=== PATIENT | female | born 1980 | race Caucasian/White ===

== ENCOUNTER → 2024-09-27 | Outpatient (CLI) | payer BC, SELFPAY ==
--- NOTE | 2024-09-27 09:30 | XR_ITS ---
Examination: Pelvic ultrasound, transabdominal, complete Technique: Transabdominal ultrasound of the pelvis performed using grayscale imaging Date and time of exam: September 27, 2024 0920 hours INDICATIONS: History uterine areas of fibroid degeneration on examination 3 years ago FINDINGS: Uterus 11.4 cm endometrial stripe 1.3 cm Uterine vascular fundal mass 5.4 x 5.2 cm Posterior uterine body vascular mass 4.2 x 4.8 cm Lower uterine segment solid mass 2.7 x 3.3 cm Right ovary 3.8 cm arterial flow 27 mm cyst Left ovary 3.4 cm arterial flow 27 mm cyst IMPRESSION: Prominent uterine masses as above, recommend transvaginal pelvic sonography follow-up
== END | disposition home or self-care (01) ==
PROVIDERS: PCP Family Medicine; Referring Provider Physician Assistant; Visit Provider Physician Assistant
DX: R19.09 Other intra-abdominal and pelvic swelling, mass and lump (principal)
CPT/HCPCS: 76856

== ENCOUNTER → 2025-02-01 | Outpatient (CLI) | payer BC, SELFPAY ==
--- NOTE | 2025-02-01 09:00 | XR_ITS ---
Examination: MRI pelvis, without contrast Date and time of exam: February 01, 2025, 0916 hrs. Indications: Pelvic cramping beginning 3 years ago., Pelvic sonogram September 27, 2024 uterine fundal mass 5.4 cm uterine body mass 4.8 cm lower uterine segment mass 3.3 cm Technique: Multiple axial sagittal and coronal images of the pelvis have been obtained with the Siemens high-resolution 1.5 An MRI scanner. Images obtained include T2-weighted fat-suppressed sagittal sections, TR 3500, TE 46, T2 weighted coronal fat suppressed images, TR 3050, TE 84, T2-weighted transverse fat suppressed images, TR 3260, TE 63, proton density transverse images, TR 4720 TE 46, and T1 weighted coronal images, TR 560, TE 13. Findings: Uterus 11 x 6 x 5.8 cm. Uterine exophytic fundal mass 5.5 cm Uterine body mass posteriorly 6.0 cm Lower uterine segment cervical mass 3.3 cm Multiple right ovarian cysts, the largest 3.4 cm Multiple left ovarian cysts, the largest 2.1 cm No free fluid in the pelvis Impression: Uterine masses as above, recommend repeat transvaginal pelvic sonography to assess the lower uterine segment mass and exclude its position in the cervix
== END | disposition home or self-care (01) ==
LOC: SMRI 02-06 06:46
PROVIDERS: Referring Provider Physician Assistant; Visit Provider Physician Assistant
DX: R19.09 Other intra-abdominal and pelvic swelling, mass and lump (principal)
CPT/HCPCS: 72195

== ENCOUNTER 2025-02-21 17:59 | Emergency (ER) | payer OTHER, SELFPAY ==
--- NOTE | 2025-02-21 18:29 | EDNOTE_ITS ---
ED Animal Bite RME/HPI General Chief Complaint: Animal Bite Stated Complaint: DOG BITE AT WORK Time Seen by Provider: 02/21/25 18:28 Arrival date/time: 02/21/25 17:59 RME / HPI RME / HPI narrative: See MDM for Dr. Rowell's HPI documentation. Related Data Home Medications ?Medication ?Instructions ?Recorded ?Confirmed fexofenadine 60 mg tablet (Katina 60 mg PO QDAY 04/2404/24/19 Allergy) mometasone-formoterol HFA 200 2 puff inhalation BID 04/24/19 mcg-5 mcg/actuation aerosol inhaler (Dulera) Previous Rx's ?Medication ?Instructions ?Recorded docusate sodium 100 mg capsule 100 mg PO BID #50 caps 04/25/19 (Colace) hydrocodone 5 mg-acetaminophen 325 1 tab PO Q6H PRN pa in #20 tabs 04/25/19 mg tablet ([place]) ibuprofen 600 mg tablet 600 mg PO Q8HR PRN pain (sca le 04/25/19 score 4-6) #14 tabs acetaminophen 300 mg-codeine 30 mg 2 tab PO Q8H PRN pa in #20 tabs 02/21/25 tablet amoxicillin 875 mg-potassium 1 tab PO BID 3 days #6 ta bs 02/21/25 clavulanate 125 mg tablet ibuprofen 600 mg tablet 600 mg PO TID PRN fever or p ain 02/21/25 #30 tabs Allergies Allergy/AdvReac Type Severity Reaction Status Date / Time No Known Allergies Allergy Verified 02/21/25 18:01 Review of Systems Review of Systems Systems Reviewed: All systems reviewed, normal except as documented Past Medical History Past Medical History NEUROLOGIC: Negative Neurological Disorders or Seizures CARDIAC: Negative Cardiac Disorders or Congestive Heart Failure RESPIRATORY: Positive Asthma (uses control inhaler daily) and Pneumonia; Negative Chronic Obstructive Pulmonary Disease (COPD) or Sleep Apnea GASTROINTESTINAL: Positive Gastrointestinal Disorders, Gall Bladder Disease and Obesity GENITOURINARY: Negative Genitourinary Disorders or Renal Disease REPRODUCTIVE: Negative Previous Pregnancies MUSCULOSKELETAL: Positive Musculoskeletal Disorders and Fractures (left 2nd toe) ENDOCRINE: Negative Endocrine Disorders, Diabetes Mellitus Type 1 or Diabetes Mellitus Type 2 HEMATOLOGIC: Negative Blood Disorders PSYCHO/SOCIAL: Positive Depression (no current meds) OTHER HISTORY: Positive Chicken Pox; Negative Hospitalization, Shingles, Falls, Blood Transfusions, Blood Transfusion Reaction, Anesthesia Reactions or Cancer Family History FAMILY HISTORY: Positive Family Cardiac Disorders (father(HTN)), Family Cancer (Mother(Thyroid Ca)) and Family Surgery; Negative Family Anesthesia Reaction Surgical History SURGICAL: Positive Nose Surgery (sinusotomy,turbinate reduction, septoplasty) Social History SMOKING STATUS: Never smoker ED Exam Narrative Physical exam: See [facility] for Dr. Rowell's physical exam documentation. Course Quality Measures none Orders Category Date Time Status XR finger RT min 2V Stat Exams 02/21/25 18:36 Taken Amoxicillin/Pot Clav 875 [Augmentin 875] Med 02/21/25 18:36 Discontinued 1 tab PO X1 ONE Bacitracin Oint pkt Med 02/21/25 19:59 Discontinued 1 gm TOP X1 ONE Ibuprofen Tab [Motrin Tab] Med 02/21/25 18:36 Discontinued 600 mg PO X1 ONE Rabies Immune Globulin/Thimer [Kedrab Inj] Med 02/21/25 19:00 Discontinued 1,300 iu IM X1 ONE Rabies Vaccine (Pcec)/Pf [Rabavert Rabies Vacc w/ Med 02/21/25 18:45 Discontinued Diluent] 2.5 unit IM .ONCE ONE TET,DIP/PERT AC (Adult)-Tdap [Boostrix Adult (Tdap) Med 02/21/25 18:36 Discontinued Vacc] 0.5 ml IMI .ONCE ONE Vital Signs Vital signs: Vital Signs Temperature 98 F 02/21/25 18:41 Pulse Rate 62 02/21/25 18:41 Respiratory Rate 18 02/21/25 18:41 Blood Pressure 142/87 H 02/21/25 18:41 Pulse Oximetry (%) 99 02/21/25 18:41 Oxygen Delivery Method Room Air 02/21/25 18:41 Animal Bite [facility] Narrative [facility] Narrative:: This section includes all my notes and documentations, including HPI, PE, and ED course. Elvin Rowell MD HPI: 45yo female here after sustaining a dog bite to her right ring finger just [employer]ER[employer]. 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 She is requesting the rabies vaccine series. No other complaints reported. ROS: All negative except as documented in HPI. Physical Exam: General: Alert and oriented. No acute distress when remaining still. Eyes: Conjunctivae and lids clear. ENT: No nasal congestion. Neck: Supple. Lungs: No respiratory distress. Skin: Warm and dry. Neuro: Alert and oriented X 3. Right 4th Finger: In the palm surface of the distal phalanx, there is 0.5 cm open wound. I reviewed all diagnostic test results. My interpretation of the right finger x-ray is no acute fracture, official radiology report is pending. At this point, diagnoses include: Open wound of left ring finger due to dog bite Treatment here included: Augmentin Tdap Ibuprofen Rabies immunoglobulin and vaccine Provided good wound care instructions. Based on my best medical judgment, made decision no further evaluation or treatment indicated at this time. Patient understands and agrees to the discharge instructions customized and printed, see below. Discharge instructions from Dr. Rowell: -- Keep the current dressing intact for 48 hours. -- After 48 hours, change the dressing once daily. Until the wound is covered with scab. -- First remove the dressing gently. If it does not come off easily, run water through it until it comes off easily. -- Then gently wash with soap and water. -- After completely drying, apply antibiotic ointment and new dressing. -- Elevate above the heart level today and tomorrow as much as possible. Placing the hand on the head is a good method. -- Augmentin to prevent severe infection. -- Ibuprofen 600 mg every 6-8 hours today and tomorrow to decrease inflammation then as needed. -- Tylenol with codeine for severe pain. -- See a private doctor on 02/24/2025 for recheck. To make sure you are healing without any complications. -- See your doctor or return here on 02/24/2025 and 02/28/2025 and 03/07/2025 for rabies vaccine. -- Seek immediate medical care with fever, spreading redness from the wound, or with any concerns. Elvin Rowell MD Patient data External records reviewed:: [facility] previous records (Per chart review, patient has no relevant previous ED visits.) Clinical information provided by:: patient Social determinants that could affect healthcare access:: none Patient has the following chronic illnesses:: asthma How is presenting disease/condition affected by chronic disease/condition?: uneffected by Evaluation data The following diagnostics were reviewed and interpreted by me:: radiology exam(s) Lab and/or radiology exams considered but not ordered:: none Interpretation Summary: I reviewed all diagnostic test results. My interpretation of the right finger x-ray is no acute fracture, official radiology report is pending. Medications / Prescriptions Medications or Prescriptions considered but not ordered:: none Medication administrations:: Medication Administration History Discontinued Medications Amoxicillin/Clavulanate Potassium (Amoxicillin/Pot Clav 875 Tablet) 1 tab PO X1 ONE Stop: 02/21/25 18:37 Last Admin: 02/21/25 19:46 Dose: 1 tab Documented By: PETER Bacitracin (Bacitracin Oint 1 Gm Packet) 1 gm TOP X1 ONE Stop: 02/21/25 20:00 Last Admin: 02/21/25 20:14 Dose: 1 gm Documented By: PETER Diphtheria/Tetanus/Acell Pertussis (Diphth,Pertuss(Acell),Tet Vac 0.5 Ml Syr- Adult) 0.5 ml IMi .ONCE ONE Stop: 02/21/25 18:37 Last Admin: 02/21/25 19:45 Dose: 0.5 ml Documented By: PETER Ibuprofen (Ibuprofen Tab 600 Mg Tablet) 600 mg PO X1 ONE Stop: 02/21/25 18:37 Last Admin: 02/21/25 19:46 Dose: 600 mg Documented By: PETER Rabies Immune Globulin (Rabies Immune Globulin 150 Iu/Ml Vial 10ml) 1,300 iu IM X1 ONE Stop: 02/21/25 19:01 Last Admin: 02/21/25 19:44 Dose: 1,300 iu Documented By: PETER Rabies Vaccine Chick Embryo Cell (Rabies Vaccine (Pcec)/Pf 2.5 Unit/Ml Vial) 2.5 unit IM .ONCE ONE Stop: 02/21/25 18:46 Last Admin: 02/21/25 19:45 Dose: 2.5 unit Documented By: PETER Augmentin, Tdap, Ibuprofen, Rabies immunoglobulin and vaccine Consultations Consultation(s) initiated? (list below): No Diagnosis Differential diagnosis animal bite: dog bite, rabies contact and other (puncture wound, finger fracture) Most likely diagnosis given after review of the tests above:: Open wound of left ring finger due to dog bite Admission Indicated Admission indicated?: not indicated Explain why admission is indicated or not indicated:: With no condition needing emergent intervention, there was no indication for admission. Admission Request Was there a request for admission?: No Disposition Plan Disposition Plan: Discharge Discharge Attestation Discharge Attestation: The patient and all family members were given an opportunity to ask questions and understood the discharge instructions. Discharge instructions specifically effects, indications for sooner follow up or return to the emergency department, and the expected course of current diagnosis. Patient condition: Stable Discharge Plan Plan Patient Disposition: HOME (Self Care) Prescriptions/Referrals Prescriptions/Med Rec: New acetaminophen-codeine 300-30 mg tablet 2 tab PO Q8H MDD 6 PRN (Reason: pain) Qty: 20 0RF ibuprofen 600 mg tablet 600 mg PO TID PRN (Reason: fever or pain) Qty: 30 0RF amoxicillin-pot clavulanate 875-125 mg tablet 1 tab PO BID 3 Days Qty: 6 0RF No Action fexofenadine [Katina Allergy] 60 mg Tablet 60 mg PO QDAY Dulera 200-5 mcg/actuation Hfa Aerosol Inhaler 2 puff INHALATION BID docusate sodium [Colace] 100 mg capsule 100 mg PO BID Qty: 50 0RF hydrocodone-acetaminophen [[place]] 5-325 mg tablet 1 tab PO Q6H MDD 4 PRN (Reason: pain) Qty: 20 0RF ibuprofen 600 mg tablet 600 mg PO Q8HR MDD 3 PRN (Reason: pain (scale score 4-6)) Qty: 14 0RF Referrals: Karlo Valerio MD [Primary Care Provider, Family Practice] - In 1 week Problem List Clinical Impression: Open wound of left ring finger due to dog bite Patient/Caregiver Discharge Instructions Discharge Activity: activity as tolerated Education Materials: ED Dog Bite, ED Wound Care Additional Instructions: Discharge instructions from Dr. Rowell:? -- Keep the current dressing intact for 48 hours. -- After 48 hours, change the dressing once daily. Until the wound is covered with scab. -- First remove the dressing gently.? If it does not come off easily, run water through it until it comes off easily. -- Then gently wash with soap and water. -- After completely drying, apply antibiotic ointment and new dressing. -- Elevate above the heart level today and tomorrow as much as possible.? Placing the hand on the head is a good method. -- Augmentin to prevent severe infection. -- Ibuprofen 600 mg every 6-8 hours today and tomorrow to decrease inflammation then as needed. -- Tylenol with codeine for severe pain. -- See a private doctor on 02/24/2025 for recheck. To make sure you are healing without any complications. -- See your doctor or return here on 02/24/2025 and 02/28/2025 and 03/07/2025 for rabies vaccine. -- Seek immediate medical care with fever, spreading redness from the wound, or with any concerns. Print Language: Latvian Stand Alone Forms: Rowan Award Info., Patient Portal Info Letter
--- NOTE | 2025-02-21 18:36 | XR_ITS ---
Examination: Fingers, right hand fourth digit 3 views Technique: AP, oblique, lateral views fourth digit 3 views. Exam date and time: February 21, 2025 1917 hrs. Indications: Dog bite to the hand today with fourth digit pain. Findings: No fracture or dislocation. No foreign body Impression: Negative for opaque foreign body
[2025-02-21 18:41] VITALS: BP 142/87; PULSE 62; RESP 18; TEMP 36.6; O2SAT 99
[2025-02-21] MEDS: RABIES IMMUNE GLOBULIN 150 IU/ML VIAL 10ML 1300 IU IM (19:44)
[2025-02-21] MEDS: RABIES VACCINE (PCEC)/PF 2.5 UNIT/ML VIAL IM (19:45)
[2025-02-21] MEDS: DIPHTH,PERTUSS(ACELL),TET VAC 0.5 ML SYR- ADULT IMi (19:45)
[2025-02-21] MEDS: AMOXICILLIN/POT CLAV 875 TABLET 1 TAB PO (19:46)
[2025-02-21] MEDS: IBUPROFEN TAB 600 MG TABLET PO (19:46)
[2025-02-21] MEDS: BACITRACIN OINT 1 GM PACKET TOP (20:14)
== END 2025-02-21 20:22 | disposition home or self-care (01) ==
PROVIDERS: Emergency Provider Emergency Medicine; PCP Family Medicine
DX: S61.255A Open bite of left ring finger without damage to nail, initial encounter (principal); W54.0XXA Bitten by dog, initial encounter; Z23 Encounter for immunization
CPT/HCPCS: 73140; 90377; 90471; 90472; 90675; 90715; 96372; 99283; A9270

== ENCOUNTER 2025-02-24 14:50 | Emergency (ER) | payer OTHER, SELFPAY ==
[2025-02-24 14:51] VITALS: BMI 20.8
[2025-02-24 15:50] VITALS: BP 112/69; PULSE 62; RESP 18; TEMP 36.9; O2SAT 100
--- NOTE | 2025-02-24 15:53 | PD.EDADULT ---
ED General RME/HPI General Chief complaint: General Adult/Misc Complain Stated complaint: REQ RABIES SERIES IMMUNIZATON #2 Time Seen by Provider: 02/24/25 15:01 Source: patient Arrival date/time: 02/24/25 14:50 45-year-old female with no known medical history presents to the emergency room with a chief complaint of needing her second rabies immunization Mode of arrival: ambulatory Limitations: no limitations Related Data Home Medications ?Medication ?Instructions ?Recorded ?Confirmed fexofenadine 60 mg tablet (Katina 60 mg PO QDAY 04/24/19 04/24/19 Allergy) mometasone-formoterol HFA 200 2 puff inhalation BID 04/24/19 04/24/19 mcg-5 mcg/actuation aerosol inhaler (Dulera) Previous Rx's ?Medication ?Instructions ?Recorded docusate sodium 100 mg capsule 100 mg PO BID #50 caps 04/25/19 (Colace) hydrocodone 5 mg-acetaminophen 325 1 tab PO Q6H PRN pain #20 tabs 04/25/19 mg tablet ([place]) ibuprofen 600 mg tablet 600 mg PO Q8HR PRN pain (scale 04/25/19 score 4-6) #14 tabs acetaminophen 300 mg-codeine 30 mg 2 tab PO Q8H PRN pain #20 tabs 02/21/25 tablet ibuprofen 600 mg tablet 600 mg PO TID PRN fever or pain 02/21/25 #30 tabs Allergies Allergy/AdvReac Type Severity Reaction Status Date / Time No Known Allergies Allergy Verified 02/24/25 14:53 Review of Systems Review of Systems Systems Reviewed: All systems reviewed, normal except as documented Constitutional Constitutional: Reports system reviewed and no additional complaints, except as documented, Denies fatigue, Denies fever(s), Denies headache(s) and Denies weakness Eyes Eyes: Reports system reviewed and no additional complaints, except as documented, Denies blurry vision and Denies change in vision ENT Ears, Nose, Mouth, and Throat: Reports system reviewed and no additional complaints, except as documented, Denies otalgia, Denies headache(s), Denies nasal congestion, Denies throat swelling and Denies vertigo Cardiovascular Cardiovascular: Reports system reviewed and no additional complaints, except as documented, Denies chest pain, Denies dyspnea and Denies dyspnea on exertion Respiratory Respiratory: Reports system reviewed and no additional complaints, except as documented, Denies chest congestion, Denies cough, Denies dyspnea, Denies dyspnea on exertion and Denies wheezing Gastrointestinal Gastrointestinal: Reports system reviewed and no additional complaints, except as documented, Denies abdominal pain, Denies cramping, Denies nausea and Denies vomiting Genitourinary Genitourinary: Reports system reviewed and no additional complaints, except as documented Musculoskeletal Musculoskeletal: Reports system reviewed and no additional complaints, except as documented and Denies back pain Integumentary/Breasts Skin/Breast: Reports system reviewed and no additional complaints, except as documented and Denies wounds Neurologic Neurologic: Reports system reviewed and no additional complaints, except as documented, Denies confusion, Denies headache(s), Denies lack of coordination, Denies vertigo and Denies weakness Psychiatric Psychiatric: Reports system reviewed and no additional complaints, except as documented, Denies anxiety, Denies confusion, Denies depression, Denies paranoia, Denies suicidal ideation and Denies tactile hallucinations Endocrine Endocrine: Reports system reviewed and no additional complaints, except as documented and Denies fatigue Hematologic/Lymphatic Hematologic/Lymphatic: Reports system reviewed and no additional complaints, except as documented and Denies lymphadenopathy Allergic/Immunologic Allergic/Immunologic: Reports system reviewed and no additional complaints, except as documented, Denies throat swelling, Denies urticaria and Denies wheezing Past Medical History Past Medical History NEUROLOGIC: Negative Neurological Disorders or Seizures CARDIAC: Negative Cardiac Disorders or Congestive Heart Failure RESPIRATORY: Positive Asthma (uses control inhaler daily) and Pneumonia; Negative Chronic Obstructive Pulmonary Disease (COPD) or Sleep Apnea GASTROINTESTINAL: Positive Gastrointestinal Disorders, Gall Bladder Disease and Obesity GENITOURINARY: Negative Genitourinary Disorders or Renal Disease REPRODUCTIVE: Negative Previous Pregnancies MUSCULOSKELETAL: Positive Musculoskeletal Disorders and Fractures (left 2nd toe) ENDOCRINE: Negative Endocrine Disorders, Diabetes Mellitus Type 1 or Diabetes Mellitus Type 2 HEMATOLOGIC: Negative Blood Disorders PSYCHO/SOCIAL: Positive Depression (no current meds) OTHER HISTORY: Positive Chicken Pox; Negative Hospitalization, Shingles, Falls, Blood Transfusions, Blood Transfusion Reaction, Anesthesia Reactions or Cancer Family History FAMILY HISTORY: Positive Family Cardiac Disorders (father(HTN)), Family Cancer (Mother(Thyroid Ca)) and Family Surgery; Negative Family Anesthesia Reaction Surgical History SURGICAL: Positive Nose Surgery (sinusotomy,turbinate reduction, septoplasty) Social History SMOKING STATUS: Never smoker ED Exam General Limitations: Present no limitations General appearance: Present alert and in no apparent distress Head Head exam: Present atraumatic Eye Eye exam: Present normal appearance, PERRL and EOMI ENT ENT exam: Present normal exam, normal oropharynx and mucous membranes moist Neck Neck exam: Present normal inspection, full ROM and trachea midline Chest Chest inspection: Present normal inspection and symmetric chest wall rise Respiratory Respiratory exam: Present normal lung sounds bilaterally Cardiovascular Cardiovascular exam: Present regular rate, normal rhythm and normal heart sounds Abdominal Exam Abdominal exam: Present soft and normal bowel sounds Extremities Exam Extremities exam: Present normal inspection and full ROM Back Exam Back exam: Present normal inspection and full ROM Neurological Exam Neurological exam: Present alert, oriented X3 and CN II-XII intact Psychiatric Psychiatric exam: Present normal affect and normal mood Skin Skin exam: Present warm, dry, intact and normal color Course Quality Measures none Orders Category Date Time Status Rabies Vaccine (Pcec)/Pf [Rabavert Rabies Vacc w/ Med 02/24/25 15:45 Discontinued Diluent] 2.5 unit IM .ONCE ONE cefTRIAXone [Rocephin] 1,000 mg Med 02/24/25 15:48 Discontinued Lidocaine 1% 20 ml [Xylocaine 1% 20 ML] 2.1 ml IM X1 Vital Signs Vital signs: Vital Signs Temperature 98.4 F 02/24/25 15:50 Pulse Rate 62 02/24/25 15:50 Respiratory Rate 18 02/24/25 15:50 Blood Pressure 112/69 02/24/25 15:50 Pulse Oximetry (%) 100 02/24/25 15:50 Oxygen Delivery Method Room Air 02/24/25 15:50 Discharge Plan Plan Patient Disposition: HOME (Self Care) Discharge Disposition comment: Stable Prescriptions/Referrals Prescriptions/Med Rec: No Action fexofenadine [Katina Allergy] 60 mg Tablet 60 mg PO QDAY Dulera 200-5 mcg/actuation Hfa Aerosol Inhaler 2 puff INHALATION BID docusate sodium [Colace] 100 mg capsule 100 mg PO BID Qty: 50 0RF hydrocodone-acetaminophen [[place]] 5-325 mg tablet 1 tab PO Q6H MDD 4 PRN (Reason: pain) Qty: 20 0RF ibuprofen 600 mg tablet 600 mg PO Q8HR MDD 3 PRN (Reason: pain (scale score 4-6)) Qty: 14 0RF acetaminophen-codeine 300-30 mg tablet 2 tab PO Q8H MDD 6 PRN (Reason: pain) Qty: 20 0RF ibuprofen 600 mg tablet 600 mg PO TID PRN (Reason: fever or pain) Qty: 30 0RF Problem List Clinical Impression: Encounter for repeat administration of rabies vaccination Patient/Caregiver Discharge Instructions Additional Instructions: Please follow-up with your primary care provider in the next 24 to 48 hours For any evidence of worsening signs or symptoms return to the emergency room immediately Print Language: Maltese Stand Alone Forms: Rowan Award Info., Patient Portal Info Letter PA/BAND SEWER Supervising Physician PA/BAND SEWER Supervising Physician: Dr. Arias MDM Narrative MDM hospital course (for use when minimal MDM required): 45-year-old female with no known medical history presents to the emergency room with a chief complaint of needing her second rabies immunization Patient is hemodynamically stable and in no apparent distress Patient denies any other complaints and states her laceration is healing appropriately. Patient denies any fevers or any pus draining from the site. Her second dose of the rabies vaccination was given and the patient was discharged Patient was discharged and educated to follow-up with primary care provider in the next 24 to 48 hours and return to the emergency room for any evidence of worsening signs or symptoms Clinical Information Provided by: none Medical Records reviewed None Meds/Rx considered, not ordered None Labs/Rad/Tests considered, not ordered None Chronic Illness/Social Conditions which may negatively complicate care or outcome(s)-explain: None or not applicable EKG EKG not done Labs Labs: none Imaging Imaging interpretation: none Medication Administration(s) none Medication Administration History Discontinued Medications Ceftriaxone Sodium 1,000 mg/ (Lidocaine HCl 2.1 ml) 0 mg IM X1 ONE Stop: 02/24/25 15:49 Rabies Vaccine Chick Embryo Cell (Rabies Vaccine (Pcec)/Pf 2.5 Unit/Ml Vial) 2.5 unit IM .ONCE ONE Stop: 02/24/25 15:46 Diagnosis Differential Diagnosis ED Complaint MDM: Encounter for second dose of rabies vaccination
[2025-02-24] MEDS: RABIES VACCINE (PCEC)/PF 2.5 UNIT/ML VIAL IM (16:33)
[2025-02-24] MEDS: cefTRIAXone 1,000 MG, LIDOCAINE 1% 20 ML 2.1 ML IM (16:34)
== END 2025-02-24 17:14 | disposition home or self-care (01) ==
LOC: SERX 16:01
PROVIDERS: Emergency Provider Emergency Medicine; PCP Family Medicine
DX: Z23 Encounter for immunization (principal)
CPT/HCPCS: 90471; 90675; 96372; 99283; J0696; J3490

== ENCOUNTER 2025-02-28 20:32 | Emergency (ER) | payer OTHER, SELFPAY ==
[2025-02-28 20:34] VITALS: BMI 21.2
[2025-02-28 21:11] VITALS: BP 106/68; PULSE 60; RESP 18; TEMP 36.7; O2SAT 99
--- NOTE | 2025-02-28 21:36 | EDNOTE_ITS ---
ED Recheck Abnl Lab Rx-RME/HPI General Chief Complaint: General Adult/Misc Complain Stated Complaint: NEEDS 3RD RABBIES SHOT Time Seen by Provider: 02/28/25 21:25 Arrival date/time: 02/28/25 20:32 45F with history of asthma and psych presents to ED needing 3rd rabies shot. Limitations: no limitations Related Data Home Medications ?Medication ?Instructions ?Recorded ?Confirmed fexofenadine 60 mg tablet (Katina 60 mg PO QDAY 04/2404/24/19 Allergy) mometasone-formoterol HFA 200 2 puff inhalation BID 04/24/19 mcg-5 mcg/actuation aerosol inhaler (Dulera) Previous Rx's ?Medication ?Instructions ?Recorded docusate sodium 100 mg capsule 100 mg PO BID #50 caps 04/25/19 (Colace) hydrocodone 5 mg-acetaminophen 325 1 tab PO Q6H PRN pa in #20 tabs 04/25/19 mg tablet ([place]) ibuprofen 600 mg tablet 600 mg PO Q8HR PRN pain (sca le 04/25/19 score 4-6) #14 tabs acetaminophen 300 mg-codeine 30 mg 2 tab PO Q8H PRN pa in #20 tabs 02/21/25 tablet ibuprofen 600 mg tablet 600 mg PO TID PRN fever or p ain 02/21/25 #30 tabs Allergies Allergy/AdvReac Type Severity Reaction Status Date / Time No Known Allergies Allergy Verified 02/28/25 20:36 Review of Systems Review of Systems Systems Reviewed: All systems reviewed, normal except as documented Past Medical History Past Medical History NEUROLOGIC: Negative Neurological Disorders or Seizures CARDIAC: Negative Cardiac Disorders or Congestive Heart Failure RESPIRATORY: Positive Asthma (uses control inhaler daily) and Pneumonia; Negative Chronic Obstructive Pulmonary Disease (COPD) or Sleep Apnea GASTROINTESTINAL: Positive Gastrointestinal Disorders, Gall Bladder Disease and Obesity GENITOURINARY: Negative Genitourinary Disorders or Renal Disease REPRODUCTIVE: Negative Previous Pregnancies MUSCULOSKELETAL: Positive Musculoskeletal Disorders and Fractures (left 2nd toe) ENDOCRINE: Negative Endocrine Disorders, Diabetes Mellitus Type 1 or Diabetes Mellitus Type 2 HEMATOLOGIC: Negative Blood Disorders PSYCHO/SOCIAL: Positive Depression (no current meds) OTHER HISTORY: Positive Chicken Pox; Negative Hospitalization, Shingles, Falls, Blood Transfusions, Blood Transfusion Reaction, Anesthesia Reactions or Cancer Family History FAMILY HISTORY: Positive Family Cardiac Disorders (father(HTN)), Family Cancer (Mother(Thyroid Ca)) and Family Surgery; Negative Family Anesthesia Reaction Surgical History SURGICAL: Positive Nose Surgery (sinusotomy,turbinate reduction, septoplasty) Social History SMOKING STATUS: Never smoker ED Exam General Limitations: Present no limitations General appearance: Present alert and in no apparent distress Head Head exam: Present atraumatic Neck Neck exam: Present normal inspection, full ROM and trachea midline Chest Chest inspection: Present normal inspection and symmetric chest wall rise Neurological Exam Neurological exam: Present alert and oriented X3 Psychiatric Psychiatric exam: Present normal affect and normal mood Skin Skin exam: Present warm, dry, intact and normal color Course Quality Measures none Orders Category Date Time Status Rabies Vaccine (Pcec)/Pf [Rabavert Rabies Vacc w/ Med 02/28/25 20:53 Discontinued Diluent] 2.5 unit IM .ONCE ONE Vital Signs Vital signs: Vital Signs Temperature 98.1 F 02/28/25 21:11 Pulse Rate 60 02/28/25 21:11 Respiratory Rate 18 02/28/25 21:11 Blood Pressure 106/68 02/28/25 21:11 Pulse Oximetry (%) 99 02/28/25 21:11 Oxygen Delivery Method Room Air 02/28/25 21:11 O2 at 99% on RA and WNLs Recheck / Abnormal Lab / Rx MDM Narrative MDM Narrative:: 45F with history of asthma and psych presents to ED needing 3rd rabies shot. Physical exam reveals well-appearing female. Patient is afebrile, calm, and alert. Meds and elementary school counselor given. Patient data External records reviewed:: [facility] previous records Clinical information provided by:: patient Social determinants that could affect healthcare access:: mental health Patient has the following chronic illnesses:: psych and asthma How is presenting disease/condition affected by chronic disease/condition?: uneffected by Evaluation data The following diagnostics were reviewed and interpreted by me:: other (specify) (none) Lab and/or radiology exams considered but not ordered:: not ordered Interpretation Summary: n/a Medications / Prescriptions Medications or Prescriptions considered but not ordered:: ordered Medication administrations:: Medication Administration History Discontinued Medications Rabies Vaccine Chick Embryo Cell (Rabies Vaccine (Pcec)/Pf 2.5 Unit/Ml Vial) 2.5 unit IM .ONCE ONE Stop: 02/28/25 20:54 above Consultations Consultation(s) initiated? (list below): No Diagnosis Recheck Differential Diagnosis: encounter for medication refill, encounter for wound recheck, encounter for recheck of burn, encounter for removal of sutures, warfarin-induced coagulopathy and other (rabies vaccination) Most likely diagnosis given after review of the tests above:: rabies vaccination Admission Indicated Admission indicated?: not indicated Admission Request Was there a request for admission?: No Disposition Plan Disposition Plan: Discharge Discharge Attestation Discharge Attestation: The patient and all family members were given an opportunity to ask questions and understood the discharge instructions. Discharge instructions specifically effects, indications for sooner follow up or return to the emergency department, and the expected course of current diagnosis. Patient condition: Stable Discharge Plan Plan Patient Disposition: HOME (Self Care) Discharge Disposition comment: Stable Prescriptions/Referrals Prescriptions/Med Rec: No Action fexofenadine [Katina Allergy] 60 mg Tablet 60 mg PO QDAY Dulera 200-5 mcg/actuation Hfa Aerosol Inhaler 2 puff INHALATION BID docusate sodium [Colace] 100 mg capsule 100 mg PO BID Qty: 50 0RF hydrocodone-acetaminophen [[place]] 5-325 mg tablet 1 tab PO Q6H MDD 4 PRN (Reason: pain) Qty: 20 0RF ibuprofen 600 mg tablet 600 mg PO Q8HR MDD 3 PRN (Reason: pain (scale score 4-6)) Qty: 14 0RF acetaminophen-codeine 300-30 mg tablet 2 tab PO Q8H MDD 6 PRN (Reason: pain) Qty: 20 0RF ibuprofen 600 mg tablet 600 mg PO TID PRN (Reason: fever or pain) Qty: 30 0RF Problem List Clinical Impression: Encounter for repeat administration of rabies vaccination Patient/Caregiver Discharge Instructions Additional Instructions: Please follow-up with PCP within 24-48 hours and return immediately if symptoms worsen. You will need one more dose in 1 week. Print Language: Argentine Stand Alone Forms: Patient Portal Info Letter DARIN/JOSÉ MIGUEL Supervising Physician DARIN/JOSÉ MIGUEL Supervising Physician: Dr. Peterson
[2025-02-28] MEDS: RABIES VACCINE (PCEC)/PF 2.5 UNIT/ML VIAL IM (22:06)
== END 2025-02-28 22:20 | disposition home or self-care (01) ==
LOC: SERX 22:16
PROVIDERS: Emergency Provider Emergency Medicine; PCP Family Medicine
DX: Z20.3 Contact with and (suspected) exposure to rabies (principal); Z23 Encounter for immunization
CPT/HCPCS: 90471; 90675; 99281

== ENCOUNTER 2025-03-07 06:51 | Emergency (ER) | payer OTHER, SELFPAY ==
[2025-03-07 07:02] VITALS: BP 111/75; PULSE 90; RESP 18; TEMP 36.6; O2SAT 99; BMI 25.9
[2025-03-07] MEDS: RABIES VACCINE (PCEC)/PF 2.5 UNIT/ML VIAL IM (07:25)
--- NOTE | 2025-03-07 07:40 | PD.EDADULT ---
ED General RME/HPI General Chief complaint: General Adult/Misc Complain Stated complaint: NEEDS 4TH RABIES VACCINE Time Seen by Provider: 03/07/25 06:55 Source: patient Arrival date/time: 03/07/25 06:51 45-year-old female with no known medical history presents to the emergency room with a chief complaint of wanting her fourth rabies vaccine Mode of arrival: ambulatory Limitations: no limitations Related Data Home Medications ?Medication ?Instructions ?Recorded ?Confirmed fexofenadine 60 mg tablet (Katina 60 mg PO QDAY 04/24/19 04/24/19 Allergy) mometasone-formoterol HFA 200 2 puff inhalation BID 04/24/19 04/24/19 mcg-5 mcg/actuation aerosol inhaler (Dulera) Previous Rx's ?Medication ?Instructions ?Recorded docusate sodium 100 mg capsule 100 mg PO BID #50 caps 04/25/19 (Colace) hydrocodone 5 mg-acetaminophen 325 1 tab PO Q6H PRN pain #20 tabs 04/25/19 mg tablet ([place]) ibuprofen 600 mg tablet 600 mg PO Q8HR PRN pain (scale 04/25/19 score 4-6) #14 tabs acetaminophen 300 mg-codeine 30 mg 2 tab PO Q8H PRN pain #20 tabs 02/21/25 tablet ibuprofen 600 mg tablet 600 mg PO TID PRN fever or pain 02/21/25 #30 tabs Allergies Allergy/AdvReac Type Severity Reaction Status Date / Time No Known Allergies Allergy Verified 02/28/25 20:36 Review of Systems Review of Systems Systems Reviewed: All systems reviewed, normal except as documented Constitutional Constitutional: Reports system reviewed and no additional complaints, except as documented, Denies fatigue, Denies fever(s), Denies headache(s) and Denies weakness Eyes Eyes: Reports system reviewed and no additional complaints, except as documented, Denies blurry vision and Denies change in vision ENT Ears, Nose, Mouth, and Throat: Reports system reviewed and no additional complaints, except as documented, Denies otalgia, Denies headache(s), Denies nasal congestion, Denies throat swelling and Denies vertigo Cardiovascular Cardiovascular: Reports system reviewed and no additional complaints, except as documented, Denies chest pain, Denies dyspnea and Denies dyspnea on exertion Respiratory Respiratory: Reports system reviewed and no additional complaints, except as documented, Denies chest congestion, Denies cough, Denies dyspnea, Denies dyspnea on exertion and Denies wheezing Gastrointestinal Gastrointestinal: Reports system reviewed and no additional complaints, except as documented, Denies abdominal pain, Denies cramping, Denies nausea and Denies vomiting Genitourinary Genitourinary: Reports system reviewed and no additional complaints, except as documented Musculoskeletal Musculoskeletal: Reports system reviewed and no additional complaints, except as documented and Denies back pain Integumentary/Breasts Skin/Breast: Reports system reviewed and no additional complaints, except as documented and Denies wounds Neurologic Neurologic: Reports system reviewed and no additional complaints, except as documented, Denies confusion, Denies headache(s), Denies lack of coordination, Denies vertigo and Denies weakness Psychiatric Psychiatric: Reports system reviewed and no additional complaints, except as documented, Denies anxiety, Denies confusion, Denies depression, Denies paranoia, Denies suicidal ideation and Denies tactile hallucinations Endocrine Endocrine: Reports system reviewed and no additional complaints, except as documented and Denies fatigue Hematologic/Lymphatic Hematologic/Lymphatic: Reports system reviewed and no additional complaints, except as documented and Denies lymphadenopathy Allergic/Immunologic Allergic/Immunologic: Reports system reviewed and no additional complaints, except as documented, Denies throat swelling, Denies urticaria and Denies wheezing ED Exam General Limitations: Present no limitations General appearance: Present alert and in no apparent distress Head Head exam: Present atraumatic Eye Eye exam: Present normal appearance, PERRL and EOMI ENT ENT exam: Present normal exam, normal oropharynx and mucous membranes moist Neck Neck exam: Present normal inspection, full ROM and trachea midline Chest Chest inspection: Present normal inspection and symmetric chest wall rise Respiratory Respiratory exam: Present normal lung sounds bilaterally Cardiovascular Cardiovascular exam: Present regular rate, normal rhythm and normal heart sounds Abdominal Exam Abdominal exam: Present soft and normal bowel sounds Extremities Exam Extremities exam: Present normal inspection and full ROM Back Exam Back exam: Present normal inspection and full ROM Neurological Exam Neurological exam: Present alert, oriented X3 and CN II-XII intact Psychiatric Psychiatric exam: Present normal affect and normal mood Skin Skin exam: Present warm, dry, intact and normal color Course Quality Measures none Orders Category Date Time Status Rabies Vaccine (Pcec)/Pf [Rabavert Rabies Vacc w/ Med 03/07/25 06:55 Discontinued Diluent] 2.5 unit IM .ONCE ONE Vital Signs Vital signs: Vital Signs Temperature 98 F 03/07/25 07:02 Pulse Rate 90 03/07/25 07:02 Respiratory Rate 18 03/07/25 07:02 Blood Pressure 111/75 03/07/25 07:02 Pulse Oximetry (%) 99 03/07/25 07:02 Oxygen Delivery Method Room Air 03/07/25 07:02 Discharge Plan Plan Patient Disposition: HOME (Self Care) Discharge Disposition comment: Stable Prescriptions/Referrals Prescriptions/Med Rec: No Action fexofenadine [Katina Allergy] 60 mg Tablet 60 mg PO QDAY Dulera 200-5 mcg/actuation Hfa Aerosol Inhaler 2 puff INHALATION BID docusate sodium [Colace] 100 mg capsule 100 mg PO BID Qty: 50 0RF hydrocodone-acetaminophen [[place]] 5-325 mg tablet 1 tab PO Q6H MDD 4 PRN (Reason: pain) Qty: 20 0RF ibuprofen 600 mg tablet 600 mg PO Q8HR MDD 3 PRN (Reason: pain (scale score 4-6)) Qty: 14 0RF acetaminophen-codeine 300-30 mg tablet 2 tab PO Q8H MDD 6 PRN (Reason: pain) Qty: 20 0RF ibuprofen 600 mg tablet 600 mg PO TID PRN (Reason: fever or pain) Qty: 30 0RF Problem List Clinical Impression: Encounter for repeat administration of rabies vaccination Patient/Caregiver Discharge Instructions Additional Instructions: Please follow-up with your primary care provider in the next 24 to 48 hours For any evidence of worsening signs or symptoms return to the emergency room immediately Print Language: Slovenian Stand Alone Forms: Rowan Award Info., Patient Portal Info Letter PA/PHYSICAL THERAPY MANAGER Supervising Physician PA/PHYSICAL THERAPY MANAGER Supervising Physician: Dr. Davenport MDM Narrative MDM hospital course (for use when minimal MDM required): 45-year-old female with no known medical history presents to the emergency room with a chief complaint of wanting her fourth rabies vaccine Patient is hemodynamically stable and in no apparent distress. Patient denies any other signs and symptoms. Patient's fourth rabies vaccination was given with no complications Patient was discharged and educated to follow-up with primary care provider in the next 24 to 48 hours and return to the emergency room for any evidence of worsening signs or symptoms Clinical Information Provided by: patient Medical Records reviewed None Meds/Rx considered, not ordered None Labs/Rad/Tests considered, not ordered None Chronic Illness/Social Conditions which may negatively complicate care or outcome(s)-explain: None or not applicable EKG EKG not done Labs Labs: none Imaging Imaging interpretation: none Medication Administration(s) Medication Administration History Discontinued Medications Rabies Vaccine Chick Embryo Cell (Rabies Vaccine (Pcec)/Pf 2.5 Unit/Ml Vial) 2.5 unit IM .ONCE ONE Stop: 03/07/25 06:56 Last Admin: 03/07/25 07:25 Dose: 2.5 unit Documented By: [email or web address] Diagnosis Differential Diagnosis ED Complaint MDM: Encounter for repeat administration of rabies vaccination
== END 2025-03-07 07:44 | disposition home or self-care (01) ==
PROVIDERS: Emergency Provider Family Medicine; PCP Family Medicine
DX: Z23 Encounter for immunization (principal)
CPT/HCPCS: 90471; 90675; 99281